=== PATIENT | male | born 2000 | race Two or more races ===

== ENCOUNTER 2019-09-08 13:53 | Day surgery (SDC) | payer OTHER, BC, SELFPAY ==
--- NOTE | ~2019-09-08 | XR_ITS ---
XR finger 2nd LT min 2V 09/08/2019 14:31 Indication: Left second finger pain Procedure: 3 views left second finger Comparison: No prior studies for comparison. Findings: There is a comminuted extra-articular fracture of the left second middle phalanx. Mild soft tissue swelling. No foreign bodies. Impression: 1: Comminuted minimally displaced extra-articular fracture left second middle phalanx. Reviewed, dictated and finalized at location A. Impression: 1: Comminuted minimally displaced extra-articular fracture left second middle p halanx.
--- NOTE | ~2019-09-08 | XR_ITS ---
EXAMINATION: XR surgery orthopedic DATE: 09/08/2019 19:30 INDICATION: ORIF left second middle phalanx fracture. TECHNIQUE: 3 fluoroscopic spot images of the left index finger were obtained during procedure perform ed by Dr. Terry. Radiologist was not present for the imaging or procedure. The amount of fluorosc opy time used during this procedure was 0.5 minutes. COMPARISON: 09/08/2019 FINDINGS: Images demonstrate percutaneous pin fixation across a mid diaphyseal fracture of the middle phalanx o f the left second digit. The fracture is nondisplaced with 15 degree of residual palmar angulation. N o other fractures identified. Joint spaces are normal. IMPRESSION: 1. Percutaneous pin fixation of a mid diaphyseal fracture of the left second middle phalanx. Reviewed, dictated and finalized at location A. IMPRESSION: 1. Percutaneous pin fixation of a mid diaphyseal fracture of the left second mi ddle phalanx.
--- NOTE | 2019-09-08 14:15 | ED.WOUNDLAC ---
HPI - Wound/Laceration General Chief Complaint: Extremity Injury, Upper <KALPESH Osuna Last Filed: 09/08/19 15:29> Stated Complaint: finger injury <KALPESH Osuna Last Filed: 09/08/19 15:29> Time Seen by Provider: 09/08/19 14:05 <KALPESH Osuna Last Filed: 09/08/19 15:29> Source: patient <KALPESH Osuna Last Filed: 09/08/19 15:29> Mode of arrival: ambulatory <KALPESH Osuna Last Filed: 09/08/19 15:29> Limitations: no limitations <KALPESH Osuna Last Filed: 09/08/19 15:29> History of Present Illness HPI narrative: Patient is a 19-year-old male who presents to emergency department for evaluation of laceration of the left index finger that occurred just prior to arrival patient was using a hammer when he struck the finger slicing the finger due to a sharp edge on the hammer. Patient notes moderate aching pain at the location of the laceration patient denies other injuries or complaints is unsure as to tetanus status on arrival to emergency department is in the room in no distress and has not taken anything for his symptoms <KALPESH Osuna Last Filed: 09/08/19 15:29> Related Data Home Medications: Home Medications Medication Instructions Recorded Confirmed No Home Medications 09/08/19 09/08/19 <KALPESH Osuna Last Filed: 09/08/19 15:29> Allergies/Adverse Reactions: Allergies Allergy/AdvReac Type Severity Reaction Status Date / Time steroids Allergy Unknown Uncoded 09/08/19 14:33 <KALPESH Osuna Last Filed: 09/08/19 15:29> Review of Systems Review of Systems: Narrative: CONSTITUTIONAL: Denies fever, chills, or sweats. EYES: Denies redness, or discharge. ENT: Denies rhinorrhea, congestion, sore throat, or otalgia. RESPIRATORY: Denies cough or dyspnea. SKIN: Positive for laceration MUSCULOSKELETAL: Positive for finger pain NEUROLOGIC: Denies numbness, or weakness. <KALPESH Osuna Last Filed: 09/08/19 15:29> [facility] Social History Social History: Social History Gender identity (if verbalized by the patient): Male <Ha Christopher PA-C - Last Filed: 09/08/19 15:29> Exam Narrative: Exam Narrative: GENERAL: Well-appearing, well-nourished, and in no acute distress. HEAD: Normocephalic, atraumatic. EYES: PERRLA and EOMI. ENT: Nares clear, no rhinorrhea or epistaxis. Mucous membranes moist. EXTREMITIES: Normal range of motion. No edema. SKIN: Warm, dry, no rash. 3 cm linear laceration along the lateral aspect of the proximal and mid phalanx of the left index finger NEURO: No focal deficits. Alert and oriented x3. Neurovascularly intact PSYCH: Normal mood and affect. <Ha Christopher PA-C - Last Filed: 09/08/19 15:29> Course PERSONNEL OFFICER/PA Physician Supervision For this encounter, I have reviewed the PA documentation, treatment plan and medical decision making: And I have had [id number] time with the patient. On exam the patient's left second digit is diffusely tender to palpation mild bleeding from open laceration. Discussed with patient plan for the OR for washout evaluation by hand surgeon all questions were answered patient in agreement at this time <Aldair Carrasco DO - Last Filed: 09/08/19 15:13> Consultations Consultation #1: Discussed case with hand surgery who will take the patient to the operative suite for washout <Ha Christopher PA-C - Last Filed: 09/08/19 15:29> Date: 09/08/19 <KALPESH Osuna Last Filed: 09/08/19 15:29> Time: 15:28 <KALPESH Osuna Last Filed: 09/08/19 15:29> Vital Signs Vital signs: Vital Signs Temperature 97.3 F L 09/08/19 14:26 Pulse Rate 88 09/08/19 14:26 Respiratory Rate 20 09/08/19 14:26 Blood Pressure 144/62 H 09/08/19 14:26 Pulse Oximetry 99 09/08/19 14:26 Temperature 97.3 F L 09/07
[2019-09-08 14:26] VITALS: BP 144/62; PULSE 88; RESP 20; TEMP 36.3; O2SAT 99
[2019-09-08] MEDS: IBUPROFEN 600 MG TABLET PO (14:38)
--- NOTE | 2019-09-08 15:05 | PC.NURSE ---
Preparing to take pt to OR after further evaluation per RHIANNA Flor. Pt undressed and jewelry removed and given to friend at bedside. Pt reports earlier is extremely afraid of needles and refused tetanus. Explained to patient need for IV prior to surgery.
[2019-09-08] MEDS: TETANUS,DIPHTHERIA,AC PERTUSSIS ADULT (0.5 ML) BOOSTRIX IM (15:27)
[2019-09-08] MEDS: SODIUM CHLORIDE 0.9% IV 1,000 ML 999 ML IV CONT (15:33)
[2019-09-08] MEDS: MORPHINE SULFATE 4 MG/ML INJ IV PUSH (15:36)
[2019-09-08 16:23] VITALS: BP 135/98; PULSE 54; RESP 19; O2SAT 98
--- NOTE | 2019-09-08 16:26 | PC.NURSE ---
Dr. Terry at bedside to exam and explain surgical procedure to patient.
--- NOTE | 2019-09-08 16:31 | PM.IMHP ---
H&P: HPI History of Present Illness Chief complaint: finger injury Narrative: Ricky James is a 19 year old male who presented to the emergency department for evaluation of laceration of the left index finger. 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 He is right-hand dominant. He noticed the laceration was seen by the emergency room staff. Radiographs were taken: Impression: 1: Comminuted minimally displaced extra-articular fracture left second middle phalanx. He states that he has normal sensation in the digit. He is able to flex and extend at the MP PIP and DIP joint. No fevers or chills. No nausea vomiting. No other areas of concern. Review of Systems Review of Systems: All systems reviewed & are unremarkable except as noted in HPI and below [facility] Social History Social History Gender identity (if verbalized by the patient): Male Meds Home Medications and Allergies Home Medications Medication Instructions Recorded Confirmed Type No Home Medications 09/08/19 09/08/19 History Allergies Allergy/AdvReac Type Severity Reaction Status Date / Time steroids Allergy Unknown Uncoded 09/08/19 14:33 Vital Signs Vital Signs - 24 hr 09/08/19 14:26 09/08/19 16:23 Temperature 36.3 C L Pulse Rate 88 54 L Respiratory Rate 20 19 Blood Pressure 144/62 H 135/98 H Pulse Oximetry 99 98 Exam Const: General: comfortable and no acute distress Eyes: General: appearance normal, both eyes and all related structures Resp: Effort & Inspection: normal respiratory effort Auscultation: no wheezes Cardio: Rate: regular rate GI: GI Palp: Yes Soft to palpation Skin: General skin exam: normal color Neuro: Cognition (Neuro): normal cognition Speech: normal speech Extrem: Other: Left hand has a laceration over the index finger middle phalanx. He is able flex and extend at the MP, PIP, and DIP joint of the index finger with evidence of intact flexors and extensors. He has good color and capillary refill. Normal gross sensation on the radial and ulnar aspect. Otherwise normal hand examination. Psych: Mental Status: mental status grossly normal Assessment and Plan Assessment and plan (1) Open displaced fracture of middle phalanx of left index finger: Code(s): S62.621B - Displaced fracture of middle phalanx of left index finger, initial encounter for open fracture Status: Acute Assessment and Plan: He would like proceed with washout / ORIF left index finger middle phalanx fracture. Today we had a lengthy discussion about his risks, benefits, alternatives. I wanted him to be very realistic about the risks involved as well as expectations. I was very up front honest that he may never regain normal motion of his hand or function. He then has risk of loss of digit. We discussed risks of bone infections. Other complications. This was lengthy open-ended conversation making sure answered all of his questions to his satisfaction including aftercare and what monitor for. Consent was obtained. He would like proceed to the OR for the open fracture. 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
--- NOTE | 2019-09-08 16:56 | WPDANESEPPF ---
Anes - Initial Pre Proc Eval Procedure: Operation Date: 09/08/19 19:00 Proposed Procedures p Open Reduction Internal Fixation Left Proximal Index Finger(Left) - Jenaro Terry MD Date/Time: 09/08/19 16:56 Surgeon: Jenaro Terry MD Pre Op Diagnosis: finger injury Patient Data Age: 19 Gender: M Height: 1.75 m Weight: 73.6 kg Last Vital Signs Temp 36.3 C L 09/08/19 14:26 Pulse 54 L 09/08/19 16:23 Resp 19 09/08/19 16:23 BP 135/98 H 09/08/19 16:23 Pulse Ox 98 09/08/19 16:23 Allergies Allergy/AdvReac Type Severity Reaction Status Date / Time steroids Allergy Unknown Uncoded 09/08/19 14:33 Home Medications Medication Instructions Recorded Confirmed Type No Home Medications 09/08/19 09/08/19 History Patient hx anesthesia problems: none Family hx anesthesia problems: none PMFSH Social History Social History Gender identity (if verbalized by the patient): Male Anes - Eval Final PreProcedure Day of Procedure 09/08/19 16:56 Patient weight: normal Heart: regular rate and rhythm Lungs: clear to auscultation and normal air movement Airway: Mallampati scale class II Neurological: alert and oriented ASA classification: I Emergent: yes Anesthetic plan: proceed Anesthesia type and monitoring: general LMA and ETT Informed Consent: The patient's anesthetic plan and its attendant risks and benefits were discussed with the patient/family/POA. Questions were solicited and answers provided to the satisfaction of the patient/family/POA.
[2019-09-08 17:09] VITALS: BMI 23.9
[2019-09-08 17:23] VITALS: BP 123/68; PULSE 545; RESP 14; TEMP 37; O2SAT 100
[2019-09-08] MEDS: LACTATED RINGERS 1,000 ML 30 ML IV CONT (18:01)
[2019-09-08] MEDS: LIDO 1%/EPINEPHRINE 1:100,000 20 ML VIAL 5 ML INFILTRATE (18:22)
[2019-09-08 19:38] VITALS: BP 108/58; PULSE 57; RESP 16; TEMP 36.2; O2SAT 96
--- NOTE | 2019-09-08 19:44 | PM.PROC ---
Procedure Note - Detailed Date of procedure: 09/08/19 Pre-op diagnosis: finger injury Left index finger open fracture middle phalanx Post-op diagnosis: same Procedure performed: 1. Open reduction internal fixation of left middle finger middle phalanx displaced fracture 2. Repair and washout of 4 cm laceration left index finger 3. Use of fluoroscopy Description of procedure: Patient was marked in the preoperative holding area. He was taken to the operating room placed supine on the operating room table. Anesthesia was provided by anesthesiology. A surgical time-out was taken. I prepped the proximal portion of his finger and did a digital block with 1% lidocaine and 0.25% Marcaine with epinephrine. He was then prepped and draped in a standard sterile fashion. Explore the wound. This did have an open fracture. I irrigated with more than a L of saline solution on TUR as well as with saline and bacitracin containing solution. Preoperatively did have sensation on both the ulnar and radial aspect of the digit and I did see the nerve although it did appear to have some traction injury appeared to be intact. This was closed with 5 0 nylon. Then using C-arm fluoroscopy 3 separate 0.035 K-wires were crossed across the fracture site. Initially added to crossing however is unable to capture the distal fragment and us as such I do a retrograde across the DIP joint. The pins were cut I placed Jergens balls. Xeroform fluffs Webril used and I put the hand in a safe position within Ortho Glass splint. Awoke and taken the PACU without difficulty. Implants: 0.035 K-wire x3 Anesthesia: MAC Surgeon: Jenaro Terry MD Estimated blood loss (mL): 2 Tourniquet time (min): 0 Drains: No Packing: No Pathology: none sent Complications: No immediate complications Condition: stable Disposition: PACU
--- NOTE | 2019-09-08 19:52 | SUR.OPER ---
EBL:5cc
[2019-09-08 20:05] VITALS: BP 110/60; PULSE 63; RESP 16; O2SAT 95
--- NOTE | 2019-09-08 20:17 | SUR.PHASEII ---
FRIEND UPDATED UPON ARRIVAL TO OP.
[2019-09-08 20:35] VITALS: BP 117/65; PULSE 55; RESP 16
== END 2019-09-08 20:40 | disposition home or self-care (01) ==
LOC: ANHED 15:15 → ANHSURGERY 15:21
PROVIDERS: Emergency Provider Emergency Medicine; Visit Provider Surgery Plastic and Reconstructive Surgery
PROC: (CPT 12002; principal; 2019-09-08 19:00)
DX: S62.621B Displaced fracture of middle phalanx of left index finger, initial encounter for open fracture (principal); Z23 Encounter for immunization; W22.8XXA Striking against or struck by other objects, initial encounter; Y93.9 Activity, unspecified; Y92.89 Other specified places as the place of occurrence of the external cause; Y99.0 Civilian activity done for income or pay
CPT/HCPCS: 12002; 26727; 73140; 90471; 90715; 96361; 96365; 96375; 99285; A9270; C1713; J0690; J2250; J2270; J2704; J3010; J7030; J7120